=== PATIENT | male | born 1985 | race Caucasian/White ===

== ENCOUNTER 2020-01-24 03:47 | Emergency (ER) | payer MEDICAID ==
[~2020-01-24] VITALS: Ht 167.6 cm; Wt 95.3 kg
[2020-01-24 03:58] VITALS: Ht 167.6 cm; Wt 95.3 kg
[2020-01-24 04:05] VITALS: BP 128/78
== END 2020-01-24 04:05 | disposition home or self-care (01) ==
LOC: ED 03:47
DX: S02.5XXA Fracture of tooth (traumatic), initial encounter for closed fracture (principal); J45.909 Unspecified asthma, uncomplicated; Z98.890 Other specified postprocedural states; Z88.5 Allergy status to narcotic agent; X58.XXXA Exposure to other specified factors, initial encounter; Y93.89 Activity, other specified; Y92.89 Other specified places as the place of occurrence of the external cause; Y99.8 Other external cause status

== ENCOUNTER 2020-01-25 01:38 | Emergency (ER) | payer MEDICAID ==
[~2020-01-25] VITALS: Ht 167.6 cm; Wt 118.8 kg
[2020-01-25 02:19] VITALS: Ht 167.6 cm; Wt 118.8 kg
[2020-01-25 03:29] VITALS: BP 135/79
== END 2020-01-25 03:29 | disposition home or self-care (01) ==
LOC: ED 01:38
DX: K02.9 Dental caries, unspecified (principal); K08.89 Other specified disorders of teeth and supporting structures; J45.909 Unspecified asthma, uncomplicated; Z88.6 Allergy status to analgesic agent

== ENCOUNTER 2020-01-27 01:00 | Emergency (ER) | payer MEDICAID ==
[~2020-01-27] VITALS: Ht 167.6 cm; Wt 117.0 kg
[2020-01-27 01:11] VITALS: Ht 167.6 cm; Wt 117.0 kg
[2020-01-27 03:00] VITALS: BP 142/78
== END 2020-01-27 03:00 | disposition home or self-care (01) ==
LOC: ED 01:00
DX: S61.210A Laceration without foreign body of right index finger without damage to nail, initial encounter (principal); W26.8XXA Contact with other sharp object(s), not elsewhere classified, initial encounter; Y93.89 Activity, other specified; Y92.89 Other specified places as the place of occurrence of the external cause; Y99.8 Other external cause status

== ENCOUNTER 2020-01-28 02:11 | Emergency (ER) | payer MEDICAID ==
[~2020-01-28] VITALS: Ht 167.6 cm; Wt 117.9 kg
[2020-01-28 02:20] VITALS: BP 149/67; Ht 167.6 cm; Wt 117.9 kg
== END 2020-01-28 02:53 | disposition home or self-care (01) ==
LOC: ED 02:11
DX: S61.011D Laceration without foreign body of right thumb without damage to nail, subsequent encounter (principal); J45.909 Unspecified asthma, uncomplicated; Z88.6 Allergy status to analgesic agent; W26.8XXD Contact with other sharp object(s), not elsewhere classified, subsequent encounter